=== PATIENT | male | born 1965 | race African-American/Black ===

== ENCOUNTER 2024-10-21 08:49 | Outpatient (AMB) | payer BC, SELFPAY ==
[2024-10-21 09:01] VITALS: BP 130/74; PULSE 66; RESP 18; TEMP 36.8; O2SAT 98; BMI 43.9
--- NOTE | 2024-10-21 09:01 | ORTHONT_ITS ---
Vital signs 10/21/24 09:01 Height 1.7 m Height Method Stated Weight 127.176 kg Weight Measurement Method Standing Scale BMI 43.9 BP 130/74 Blood Pressure Source Automatic Cuff Blood Pressure Location Left Upper Arm Position Sitting Respiration 18 Pulse 66 Pulse Source Monitor Temp 98.2 F Temp Source Temporal Artery Scan Pulse Oximetry (%) 98 Oxygen Delivery Method Room Air Med/Allergies Allergies & Medications Allergies No Known Allergies Allergy (Unverified 09/07/24 13:32) Subjective Visit Visit for: follow up visit and hip Immunization / Flu Flu Vaccine in the Last 12 Months: No Flu Vaccine Exclusion Criteria: No Exclusion Criteria History of Present Illness Chief complaint: PT HERE IN OFFICE COMPLAINTS OF LEFT HIP PAIN Date of injury / onset of symptoms: 2 MONTHS 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 The left hip pain has been ongoing for 3 months. He has Tried ibuprofen in the past. A lot of the pain is in his groin and back. He reports the pain does radiate down just past his knee.He is able to put on socks and shoes. He has had an injection in his hip roughly 2 months ago. He reports that he got no relief whatsoever. I discussed with him that this is not a great prognostic sign. 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 Exam Exam Patient is in no acute distress and is cooperative with the examination today. Breathing is nonlabored. In no respiratory distress. Patient has no paraspinal tenderness. Spinal deformity [cannot] be appreciated. The gait of the patient is [nonantalgic] Bilateral extremities were evaluated and demonstrates sensation intact to light touch. Palpable pedal pulses are present. No significant edema is present. Bilateral knees were examined and the patient has full strength and range of motion.. The right hip was examined. Patient was able to flex to 90 degrees, adduct to 30 degrees, abduct to 40 degrees, internally rotate to 20 degrees, and externally rotate to 20 degrees. Patient has a negative logroll. Stinchfield is negative. The patient is nontender diffusely to touch. The left hip was examined. Patient was able to flex to 90 and up to 20 degrees. Internal to rotation is 20 degrees and external rotation is 30 degrees. Stinchfield is negative and the logroll is positive. Left hip x-rays were reviewed by me today. There is no AP pelvis and this film. This demonstrates moderate joint space narrowing and arthritis. I also reviewed his spine films there. There appears to be evidence of spinal stenosis as there is complete degeneration of the L4-5 in particular. The x-ray reads that there is critical spinal stenosis Assessment and Plan Problem List (1) Spinal stenosis: Status: Acute (2) Arthritis of left hip: Status: Acute Plan: Patient is a 59-year-old male with x-ray evidence of moderate left hip arthritis. He had an injection of his left hip and received with minimal relief. I thus we will get an MRI of his spine. His history of known spinal stenosis. I will see him back after his MRI is done. I discussed with him is a poor prognostic sign that he had almost no relief with a left hip injection. Office Procedures GNS Level of Care Nursing/Assessment Patient Status: Established Patient Nursing Assessment/Reassesment: BP Monitoring, Medication Reconciliation, Update PMH in EMR and Vital Signs Coordination of Care: Complex Care and Chronic Disease 1-5, Consent,records obtained, informed consent, Lab and Imaging orders and Results/Orders obtained Established Patient Charge Established Patient Point Assignment: 95 Established Patient Point Charge: EP Level 3 (80-115) Past Medical History Past Medical History Have you ever been diagnosed with any of the following: Cardiology Problems Congestive Heart Failure: No Hypertension: Yes Respiratory Problems Chronic Obstructive Pulmonary Disease (COPD): No Smoking: No Smoking Cessation Counseling: No Smoking Exposure: No Genital/Urinary Problems Renal Disease: No Endocrine Problems Diabetes Mellitus Type 1: No Diabetes Mellitus Type 2: No Surgical History Total Knee Replacement: Yes (BILATERAL KNEE SX BY DR. MILES )
== END 2024-10-21 09:26 | disposition home or self-care (01) ==
LOC: HODSRG 08:49
PROVIDERS: PCP Family Medicine; Referring Provider Family Medicine; Supervising Provider Orthopaedic Surgery Adult Reconstructive Orthopaedic Surgery; Visit Provider Orthopaedic Surgery Adult Reconstructive Orthopaedic Surgery
DX: M48.00 Spinal stenosis, site unspecified (principal); M16.12 Unilateral primary osteoarthritis, left hip; I10 Essential (primary) hypertension
CPT/HCPCS: 99213; G0463

== ENCOUNTER 2025-01-13 10:17 | Outpatient (AMB) | payer BC, SELFPAY ==
--- NOTE | 2025-01-13 10:28 | PD.ORTHCLVIS ---
Vital signs 01/13/25 10:30 Height 1.7 m Height Method Stated Weight 126.779 kg Weight Measurement Method Standing Scale BMI 43.8 BP 154/89 H Blood Pressure Source Automatic Cuff Blood Pressure Location Left Upper Arm Position Sitting Respiration 18 Pulse 71 Pulse Source Monitor Temp 96.8 F Temp Source Temporal Artery Scan Pulse Oximetry (%) 97 Oxygen Delivery Method Room Air Med/Allergies Allergies & Medications Allergies No Known Allergies Allergy (Verified 01/13/25 10:30) Medication Reconciliation Amlodipine Bes/Benazepril * (LOTREL *) 1 cap PO QDAY #0 caps 10/30/17 [History Confirmed 01/13/25] aspirin 81 mg chewable tablet ([employer] Chewable Low Dose Aspirin) 81 mg PO QDAY ##0 10/30/17 [History Confirmed 01/13/25] cyanocobalamin (vitamin B-12) 2,000 mcg tablet,extended release (Vitamin B-12 ER) 2,500 mcg PO QDAY ##0 10/30/17 [History Confirmed 01/13/25] gabapentin 600 mg tablet 600 mg PO TID #0 tabs 10/30/17 [History Confirmed 01/13/25] hydrochlorothiazide 12.5 mg capsule (Microzide) 12.5 mg PO QAM #0 caps 10/30/17 [History Confirmed 01/13/25] latanoprost 0.005 % eye drops (Xalatan) 1 drp Both eyes HS #2.5 mL 10/30/17 [History Confirmed 01/13/25] meloxicam 15 mg tablet (Mobic) 15 mg PO HS #0 tabs 10/30/17 [History Confirmed 01/13/25] lamivudine 150 mg tablet (Epivir) 150 mg PO BID blood exp #30 tabs 05/22/18 [Rx Confirmed 01/13/25] zidovudine 100 mg capsule (Retrovir) 300 mg (3 x 100 mg) PO BID blood exp #30 caps 05/22/18 [Rx Confirmed 01/13/25] meloxicam 7.5 mg tablet 7.5 mg PO QDAY #45 tabs 08/26/24 [Rx Confirmed 01/13/25] cyclobenzaprine 5 mg tablet 5 mg PO QHS PRN muscle spasm #30 tabs 01/13/25 [Rx] Exam Exam Patient is in no acute distress and is cooperative with the examination today. Breathing is nonlabored. In no respiratory distress. Patient has no paraspinal tenderness. Spinal deformity [cannot] be appreciated. The gait of the patient is [nonantalgic] Bilateral extremities were evaluated and demonstrates sensation intact to light touch. Palpable pedal pulses are present. No significant edema is present. Bilateral knees were examined and the patient has full strength and range of motion.. The right hip was examined. Patient was able to flex to 90 degrees, adduct to 30 degrees, abduct to 40 degrees, internally rotate to 20 degrees, and externally rotate to 20 degrees. Patient has a negative logroll. Stinchfield is negative. The patient is nontender diffusely to touch. The left hip was examined. Patient was able to flex to 90 and up to 20 degrees. Internal to rotation is 20 degrees and external rotation is 30 degrees. Stinchfield is negative and the logroll is positive. Left hip x-rays were reviewed by me today. There is no AP pelvis and this film. This demonstrates moderate joint space narrowing and arthritis. Assessment and Plan Problem List (1) Arthritis of left hip: Status: Acute Plan: Patient is a 59-year-old male with moderate left hip arthritis who is obese. We would like for him to lose weight if possible. He either has back or hip issues or both. It is very difficult to differentiate which is causing his pain as the pain is primarily in his buttocks and radiates down the posterior thigh as well as the groin. I would like to try a repeat diagnostic hip injection. We also discussed weight loss in great detail today. Office Procedures GNS Level of Care Nursing/Assessment Patient Status: Established Patient Nursing Assessment/Reassesment: Medication Reconciliation, Update PMH in EMR and Vital Signs Coordination of Care: Complex Care and Chronic Disease 1-5, Education Complex Pt/Fam, Consent,records obtained, informed consent, Results/Orders obtained and Staff clarify orders Established Patient Charge Established Patient Point Assignment: 95 Established Patient Point Charge: EP Level 3 (80-115) MA Intake Visit Data Collection New Patient or Established: Established Patient (seen at [facility] within 3 years) Reason for Visit:: MRI RESULTS/F/U Seen by Clinical Staff ONLY (RN/MA): No Shoemaker Apprentice Required: No PCP or OBGYN visit in last 3 months: Yes Hx Now: No Do You Feel Safe at Home: Yes Authorities Contacted: N/A Questionairres Past Medical History Past Medical History Have you ever been diagnosed with any of the following: Cardiology Problems Congestive Heart Failure: No Hypertension: Yes Respiratory Problems Chronic Obstructive Pulmonary Disease (COPD): No Smoking: No Smoking Cessation Counseling: No Smoking Exposure: No Genital/Urinary Problems Renal Disease: No Endocrine Problems Diabetes Mellitus Type 1: No Diabetes Mellitus Type 2: No Surgical History Total Knee Replacement: Yes (BILATERAL KNEE SX BY DR. MILES ) Subjective Visit Visit for: follow up visit, knee and MRI (RESULTS) Immunization / Flu Flu Vaccine in the Last 12 Months: No Flu Vaccine Exclusion Criteria: No Exclusion Criteria History of Present Illness Chief complaint: Talon is a pleasant 59-year-old male with a left hip pain as well as back pain. He is obese and we would like for him to lose weight if possible. His last hip injection did not help at all. We will order a repeat left injection presenting this is a little strange. We will also send a referral to a heel painter for back injections Pain Pain level (0-10): 8 Pain duration: ALL DAY Pain location: inside (medial) and anterior Pain quality: sharp, dull and aching Pain timing: increases with activity and stairs Associated signs & symptoms: none Ambulatory data Ambulatory device: none Treatments Improvement with previous injections: No Improvement with PT: No Improvement with NSAIDS: no Review of Systems Review of Systems: All systems negative unless otherwise noted in HPI.
[2025-01-13 10:30] VITALS: BP 154/89; PULSE 71; RESP 18; TEMP 36; O2SAT 97; BMI 43.8
== END 2025-01-13 10:59 | disposition home or self-care (01) ==
LOC: HODSRG 10:17
PROVIDERS: PCP Family Medicine; Referring Provider Family Medicine; Supervising Provider Orthopaedic Surgery Adult Reconstructive Orthopaedic Surgery; Visit Provider Orthopaedic Surgery Adult Reconstructive Orthopaedic Surgery
DX: M16.12 Unilateral primary osteoarthritis, left hip (principal)
CPT/HCPCS: 99213; G0463